=== PATIENT | male | born 1955 | race Caucasian/White ===

== ENCOUNTER → 2016-10-04 | Outpatient (REF) | payer OTHER ==
[~2016-10-04] MED LIST: ASPI81TA85 PO; GLUC15002 PO; LISI-542 PO; MULT1TAB10 PO; PARO40TA PO; PRIM50TA6 PO; SIMV20TA2 PO
== END ==
LOC: M LAB REF 12:16
PROVIDERS: ATTEND Physician Assistant Medical
DX: R50.9 Fever, unspecified (principal)

== ENCOUNTER 2019-04-09 08:52 | Day surgery (SDC) | payer OTHER ==
[~2019-04-09] VITALS: Ht 182.9 cm; Wt 139.7 kg
[~2019-04-09 08:52] MED LIST changes: +NO ITAB PO; +NS 1,000 ML IV ONE; -PARO40TA PO; +PARO40TA2 PO; +PROPOFOL 200 MG/20 ML VIAL As Ordered ONE
--- NOTE | 2019-04-09 10:37 | ROOR ---
Patient Name: Derick Saenz Procedure Date: 04/09/2019 10:08 AM Date of : 1955 Age: 63 Room: [facility] Gender: Male Note Status: Finalized Procedure: Colonoscopy Indications: High risk colon cancer surveillance: Personal history of colonic polyps, Last colonoscopy: January 2016 Providers: Cruz THURMAN MD Referring MD: Dimitry Escobar, [facility], Admin. Requesting Provider: Medicines: Monitored Anesthesia Care Complications: No immediate complications. Procedure: Pre-Anesthesia Assessment: - The heart rate, respiratory rate, oxygen saturations, blood pressure, adequacy of pulmonary ventilation, and response to care were monitored throughout the procedure. The Colonoscope was introduced through the anus and advanced to the cecum, identified by appendiceal orifice and ileocecal valve. The colonoscopy was performed without difficulty. The patient tolerated the procedure well. The quality of the bowel preparation was excellent. Findings: The perianal and digital rectal examinations were normal. Five sessile polyps were found in the sigmoid colon, descending colon and ascending colon. The polyps were diminutive in size. These polyps were removed with a cold snare. Resection and retrieval were complete. Internal hemorrhoids were found during retroflexion. The hemorrhoids were moderate. The exam was otherwise without abnormality on direct and retroflexion views. Retroflexion in the right colon was performed. Impression: - Five diminutive polyps in the sigmoid colon, in the descending colon and in the ascending colon, removed with a cold snare. Resected and retrieved. - Internal hemorrhoids. - The examination was otherwise normal on direct and retroflexion views. Recommendation: - Repeat colonoscopy in 3 years for surveillance. Cruz Thurman MD Cruz THURMAN MD 04/09/2019 10:36:58 AM Electronically signed by Cruz THURMAN MD Number of Addenda: 0 Note Initiated On: 04/09/2019 10:08 AM Estimated Blood Loss: Estimated blood loss: none.
[2019-04-09 11:05] VITALS: BP 175/94
== END 2019-04-09 11:05 | disposition home or self-care (01) ==
LOC: M OPP 08:52
PROVIDERS: ATTEND Internal Medicine Gastroenterology
DX: Z12.11 Encounter for screening for malignant neoplasm of colon (principal); Z86.010 Personal history of colon polyps; Z80.0 Family history of malignant neoplasm of digestive organs; D12.5 Benign neoplasm of sigmoid colon; D12.2 Benign neoplasm of ascending colon; K63.5 Polyp of colon; K64.8 Other hemorrhoids; G47.30 Sleep apnea, unspecified; Z79.82 Long term (current) use of aspirin; Z79.899 Other long term (current) drug therapy

== ENCOUNTER → 2019-06-15 | Outpatient (CLI) | payer OTHER ==
[~2019-06-15] MED LIST changes: -NS 1,000 ML IV ONE; -PROPOFOL 200 MG/20 ML VIAL As Ordered ONE
[2019-06-15 13:17] LABS: HEMOGLOBIN A1c 7.1 %
== END ==
LOC: M LAB 11:15
PROVIDERS: ATTEND Family Medicine
DX: R73.9 Hyperglycemia, unspecified (principal)

== ENCOUNTER → 2019-09-15 | Outpatient (CLI) | payer OTHER ==
[~2019-09-15] MED LIST changes: -SIMV20TA2 PO; +SIMV20TA22 PO
[2019-09-15 09:08] LABS: CHOLESTEROL RISK RATIO 4.363 (<5)
[2019-09-15 13:37] LABS: MAU/CREAT RATIO 70.1 MCG/MG (0.0-30.0)
== END ==
LOC: M LAB 07:36
PROVIDERS: ATTEND Physician Assistant Medical
DX: E11.9 Type 2 diabetes mellitus without complications (principal)

== ENCOUNTER → 2020-01-06 | Outpatient (CLI) | payer OTHER ==
[2020-01-06 12:13] LABS: HEMOGLOBIN A1c 7.7 %
[2020-01-06 12:19] LABS: BLOOD UREA NITROGEN 11 MG/DL (7-18); CALCIUM LEVEL 9.1 MG/DL (8.8-10.2); CARBON DIOXIDE LEVEL 25 MEQ/L (21-32); CHLORIDE LEVEL 105 MEQ/L (98-107); CREATININE FOR GFR 0.87 MG/DL (0.70-1.30); GLOMERULAR FILTRATION RATE > 60.0 (>49); GLUCOSE, FASTING 187 MG/DL (70-100); SODIUM LEVEL 140 MEQ/L (136-145)
== END ==
LOC: M LAB 11:10
PROVIDERS: ATTEND Physician Assistant Medical
DX: E11.21 Type 2 diabetes mellitus with diabetic nephropathy (principal); Z13.89 Encounter for screening for other disorder
CPT/HCPCS: 36415; 80048; 83036; G0472

== ENCOUNTER → 2020-04-26 | Outpatient (CLI) | payer OTHER ==
[~2020-04-26] MED LIST changes: -ASPI81TA85 PO; +ASPI81TA86 PO
[2020-04-26 13:52] LABS: BLOOD UREA NITROGEN 15 MG/DL (7-18); CALCIUM LEVEL 9.6 MG/DL (8.8-10.2); CARBON DIOXIDE LEVEL 26 MEQ/L (21-32); CHLORIDE LEVEL 102 MEQ/L (98-107); CREATININE FOR GFR 0.75 MG/DL (0.70-1.30); GLOMERULAR FILTRATION RATE > 60.0 (>49); GLUCOSE, FASTING 97 MG/DL (70-100); POTASSIUM SERUM 4.6 MEQ/L (3.5-5.1); SODIUM LEVEL 134 MEQ/L (136-145)
[2020-04-26 14:25] LABS: HEMOGLOBIN A1c 6.1 %
== END ==
LOC: M LAB 11:59
PROVIDERS: ATTEND Physician Assistant Medical
DX: E11.21 Type 2 diabetes mellitus with diabetic nephropathy (principal)

== ENCOUNTER → 2020-07-12 | Outpatient (CLI) | payer OTHER | LOC: M LABSMTC 13:40 | PROVIDERS: ATTEND Pediatrics | DX: Z11.59 Encounter for screening for other viral diseases (principal) ==

== ENCOUNTER → 2020-10-08 | Outpatient (CLI) | payer OTHER ==
[~2020-10-08] MED LIST changes: -LISI-542 PO; +LISI-898 PO
[2020-10-08 11:52] LABS: HEMOGLOBIN A1c 7.6 %
[2020-10-08 11:53] LABS: ALBUMIN 3.6 GM/DL (3.2-5.2); ALT/SGPT 92 U/L (12-78); BILIRUBIN,TOTAL 0.6 MG/DL (0.2-1.0); BLOOD UREA NITROGEN 11 MG/DL (7-18); CARBON DIOXIDE LEVEL 27 MEQ/L (21-32); CHLORIDE LEVEL 102 MEQ/L (98-107); CHOLESTEROL LEVEL 158 MG/DL (<200); CHOLESTEROL RISK RATIO 5.266 (<5); CREATININE FOR GFR 0.77 MG/DL (0.70-1.30); GLOMERULAR FILTRATION RATE > 60.0 (>49); GLUCOSE, FASTING 191 MG/DL (70-100); HDL CHOLESTEROL 30 MG/DL (>40); LDL CHOLESTEROL 87 MG/DL (<100); NON-HDL-C 128 MG/DL; POTASSIUM SERUM 4.4 MEQ/L (3.5-5.1); SODIUM LEVEL 135 MEQ/L (136-145); TOTAL PROTEIN 7.1 GM/DL (6.4-8.2); TRIGLYCERIDES LEVEL 205 MG/DL (<150)
[2020-10-08 19:23] LABS: MALB URINE SIEMENS 17.8 MG/L; MAU/CREAT RATIO 15.6 MCG/MG (0.0-30.0)
== END ==
LOC: M LAB 10:26
PROVIDERS: ATTEND Nurse Practitioner Family
DX: I10 Essential (primary) hypertension (principal)

== ENCOUNTER → 2021-02-15 | Outpatient (CLI) | payer MEDICARE, OTHER ==
[2021-02-15 14:21] LABS: HEMOGLOBIN A1c 6.4 %
== END ==
LOC: M LAB 12:59
PROVIDERS: ATTEND Nurse Practitioner Family
DX: E11.42 Type 2 diabetes mellitus with diabetic polyneuropathy (principal)

== ENCOUNTER → 2021-05-28 | Outpatient (CLI) | payer OTHER ==
[2021-05-28 20:21] LABS: HEMOGLOBIN A1c 6.7 %
== END ==
LOC: M LAB 16:50
PROVIDERS: ATTEND Nurse Practitioner Family
DX: E11.42 Type 2 diabetes mellitus with diabetic polyneuropathy (principal)

== ENCOUNTER → 2021-08-31 | Outpatient (CLI) | payer OTHER ==
[~2021-08-31] MED LIST changes: -LISI-898 PO; +LISI5TAB11 PO
[2021-08-31 11:44] LABS: FOLATE 19.4 NG/ML (>5.4); THYROID STIMULATING HORMONE 1.57 uIU/ML (0.358-3.740)
== END ==
LOC: M LAB 10:34
PROVIDERS: ATTEND Psychiatry & Neurology Neurology
DX: R25.1 Tremor, unspecified (principal); E03.9 Hypothyroidism, unspecified; E56.9 Vitamin deficiency, unspecified; R41.3 Other amnesia; E11.42 Type 2 diabetes mellitus with diabetic polyneuropathy; I10 Essential (primary) hypertension; E78.2 Mixed hyperlipidemia

== ENCOUNTER → 2021-08-31 | Outpatient (CLI) | payer OTHER ==
[2021-08-31 11:28] LABS: HEMOGLOBIN A1c 7.3 %
[2021-08-31 11:35] LABS: ALBUMIN 3.6 GM/DL (3.2-5.2); ALT/SGPT 99 U/L (12-78); BILIRUBIN,TOTAL 0.5 MG/DL (0.2-1.0); BLOOD UREA NITROGEN 10 MG/DL (7-18); CALCIUM LEVEL 9.5 MG/DL (8.8-10.2); CARBON DIOXIDE LEVEL 26 MEQ/L (21-32); CHLORIDE LEVEL 103 MEQ/L (98-107); CHOLESTEROL LEVEL 148 MG/DL (<200); CHOLESTEROL RISK RATIO 4.484 (<5); CREATININE FOR GFR 0.68 MG/DL (0.70-1.30); GLOMERULAR FILTRATION RATE > 60.0 (>49); GLUCOSE, FASTING 155 MG/DL (70-100); HDL CHOLESTEROL 33 MG/DL (>40); LDL CHOLESTEROL 83 MG/DL (<100); NON-HDL-C 115 MG/DL; POTASSIUM SERUM 4.3 MEQ/L (3.5-5.1); SODIUM LEVEL 137 MEQ/L (136-145); TOTAL PROTEIN 7.1 GM/DL (6.4-8.2); TRIGLYCERIDES LEVEL 162 MG/DL (<150)
[2021-08-31 14:16] LABS: MALB URINE SIEMENS 17.9 MG/L; MAU/CREAT RATIO 13.9 MCG/MG (0.0-30.0)
== END ==
LOC: M LAB 10:30
PROVIDERS: ATTEND Nurse Practitioner Family
DX: E11.42 Type 2 diabetes mellitus with diabetic polyneuropathy (principal); I10 Essential (primary) hypertension; E78.2 Mixed hyperlipidemia

== ENCOUNTER → 2022-01-23 | Outpatient (CLI) | payer OTHER | LOC: M RAD 14:23 | PROVIDERS: ATTEND Nurse Practitioner Family | DX: M25.551 Pain in right hip (principal) ==

== ENCOUNTER → 2022-01-25 | Outpatient (CLI) | payer OTHER ==
[2022-01-25 13:28] LABS: HEMOGLOBIN A1c 6.9 %
== END ==
LOC: M LAB 11:00
PROVIDERS: ATTEND Nurse Practitioner Family
DX: E11.43 Type 2 diabetes mellitus with diabetic autonomic (poly)neuropathy (principal)

== ENCOUNTER → 2022-02-14 | Outpatient (CLI) | payer OTHER | LOC: M SOG 10:02 | PROVIDERS: ATTEND Orthopaedic Surgery Adult Reconstructive Orthopaedic Surgery | DX: M25.551 Pain in right hip (principal); M25.552 Pain in left hip ==

== ENCOUNTER → 2022-03-04 | Outpatient (CLI) | payer OTHER, MEDICARE ==
[~2022-03-04] MED LIST changes: +BUPIVACAINE HCL 0.5% 30ML VIAL As Ordered ONE; +ISOVUE-300 61% 50ML VIAL As Ordered ONE; +LIDOCAINE 1% MDV 20ML VIAL As Ordered ONE; +methylPREDNISolone 80MG/ML SUSP 1ML VIAL (J1040) As Ordered ONE
== END ==
LOC: M RADPRO 13:39
PROVIDERS: ATTEND Orthopaedic Surgery Adult Reconstructive Orthopaedic Surgery
DX: M25.851 Other specified joint disorders, right hip (principal)
CPT/HCPCS: 20610; 76000; J1040; Q9967